=== PATIENT | female | born 2000 | race Two or more races ===

== ENCOUNTER 2021-03-19 12:36 | Emergency (ER) | payer OTHER ==
[~2021-03-19] VITALS: Ht 152.4 cm; Wt 43.3 kg
[2021-03-19 18:12] VITALS: BP 123/67
== END 2021-03-19 19:03 | disposition home or self-care (01) ==
LOC: ER 12:36
DX: S61.211A Laceration without foreign body of left index finger without damage to nail, initial encounter (principal); W26.0XXA Contact with knife, initial encounter; Y93.89 Activity, other specified; Y92.89 Other specified places as the place of occurrence of the external cause; Y99.8 Other external cause status
CPT/HCPCS: 12001